=== PATIENT | male | born 1965 | race Caucasian/White ===

== ENCOUNTER 2018-04-01 09:17 | Day surgery (SDC) | payer BC ==
[~2018-04-01 09:17] MED LIST: ACETAMINOPHEN 1,000 MG/100 ML BTL IV ONE
[2018-04-01] MEDS ORDERED: FENTANYL PF 100MCG/2ML VIAL IV ONE (09:18)
[2018-04-01] MEDS ORDERED: MIDAZOLAM HCL 2MG/2ML VIAL IV ONE (09:18)
[2018-04-01] MEDS ORDERED: SEVOFLURANE 250 ML INH ONE (09:18)
[2018-04-01] MEDS ORDERED: HYDROCODONE/APAP 5/325MG TABLET PO ONE (09:18)
[2018-04-01] MEDS ORDERED: BUPIVACAINE 0.25% W/EPI MPF 30ML VIAL IVP ONE (09:18)
[2018-04-01] MEDS ORDERED: LIDOCAINE 2% MDV (20MG/ML) 20ML VIAL IV ONE (09:18)
[2018-04-01] MEDS ORDERED: KETOROLAC 30 MG/ML VIAL IVP ONE (09:18)
[2018-04-01] MEDS ORDERED: PROPOFOL 10 MG/ML VIAL IV ONE (09:18)
[2018-04-01] MEDS ORDERED: ONDANSETRON HCL IV 4 MG/2 ML VIAL IVP ONE (09:18)
--- NOTE | 2018-04-03 22:25 | Operative Note ---
DATE: 04/01/2018 PREOPERATIVE DIAGNOSES: TORN MEDAL MENISCUS OF THE RIGHT KNEE. POSTOPERATIVE DIAGNOSES: 1. TORN MEDIAL MENISCUS OF THE RIGHT KNEE. 2. MEDIAL PATELLA PLICA RIGHT KNEE. OPERATIVE PROCEDURE: 1. ARTHROSCOPIC PARTIAL MEDIAL MENISCECTOMY RIGHT KNEE. 2. ARTHROSCOPIC RESECTION MEDIAL PATELLA PLICA RIGHT KNEE. STAFF SURGEON: EVELYN CODY M.D. REFERRING PHYSICIAN: JULIANA WORTHY M.D. DESCRIPTION: This 52-year-old male was taken to the Operating Room and placed in the supine position on the operating room table, where general anesthesia was induced. The right lower extremity was elevated and exsanguinated and the tourniquet inflated to 300 mmHg. Arthroscopic knee english applied, right knee prepped with Hibiclens and draped in the usual sterile fashion. An inferior lateral portal was established for the 4 mm arthroscope. An initial evaluation of the joint demonstrated normal appearance of the suprapatellar pouch. Patellofemoral joint appeared essentially normal other than the fact that there was a thick and hypertrophic medial patellar plica. This was resected with the rotating shaver. The medial compartment was entered and a complex tear of the posterior horn of the medial meniscus was present. This tear had flap-type components as well as some horizontal cleavage components, the apex of the tear being at approximately the 11:30 position. We resected back to the apex of the tear and then tapered both medially and laterally to form a smooth contoured stable surface. This was then re-probed and found to be stable. At the apex of the tear , there was approximately 3 mm of meniscal tissue remaining. The articular cartilage of the medial compartment appeared relatively normal. The intercondylar notch was examined and found to be normal. The lateral compartment was entered. There was no evidence of tear. The lateral meniscus and the articular cartilage of the lateral compartment appeared normal. The wound was irrigated and suctioned. Portals were infiltrated with 0.25% Marcaine with Epinephrine after all instruments had been removed. Sterile dressings were applied and the patient taken to the Recovery Room in satisfactory condition. JOB NUMBER: [id number] [facility]
== END 2018-04-01 13:00 | disposition home or self-care (01) ==
LOC: SUR 09:17
PROVIDERS: ATTEND Orthopaedic Surgery
DX: S83.231A Complex tear of medial meniscus, current injury, right knee, initial encounter (principal); M67.51 Plica syndrome, right knee; G25.81 Restless legs syndrome; K21.9 Gastro-esophageal reflux disease without esophagitis; F17.210 Nicotine dependence, cigarettes, uncomplicated
CPT/HCPCS: 29881; 01400; 93005; J1885; J2405; J3010